=== PATIENT | female | born 1960 | race Caucasian/White ===

== ENCOUNTER → 2024-02-29 | Outpatient (CLI) | payer OTHER ==
[~2024-02-29] MED LIST: AJOVY225 MG/1.5 SQ; AMERGE 2.5MG T2.5 MG PO; ASPIRIN 81M81 MG/TA2 PO; ATROVENT INHALE14 GM IH; CALCIUM CARBON500 M1 PO; CAMBIA50 MG PO; CHOLECALCIFEROL PO; COLACE 100100 MG/CAP PO; COMPAZINE 110 MG/TAB PO; COZAAR 50MG50 MG/TAB PO; CYMBALTA 60MG60 MG PO; DESYREL 50MG50 MG PO; EVOXAC30 MG PO; FLONASEALLERGY NS; MAGIC MOUTH PO; MASON NATURAL2000 IU PO; MIRALAX PA17 GM/Dose PO; MOBIC15 MG PO; NORCO 325 MG-101 TAB PO; PLAQUENIL 200M200 MG PO; PRIL40 PO; PRINIVIL5 MG PO; PROAIR HFA0.09 MG/AC IH; SINGULAIR 110 MG/TAB PO; SYNTHROID0.125 MG/T PO; SYNTHROID0.2 MG/TAB PO; TOPROL XL 50MG50 MG PO; TOPROL XL100 MG PO; TRILIPIX45 MG PO; ULTRAM 50MG TAB50 MG PO; VOLTAREN GEL 1%1 TU TP; ZANAFLEX 4MG TAB4 MG PO; ZETIA 10MG TAB10 MG PO; ZILRETTA32 MG TOP; [UNRECOGNIZED DRUG - CODE] SC
== END ==
LOC: MHCPAIN 15:06
DX: M54.12 Radiculopathy, cervical region (principal); M47.812 Spondylosis without myelopathy or radiculopathy, cervical region; G89.29 Other chronic pain
CPT/HCPCS: G0463

== ENCOUNTER → 2024-03-03 | Outpatient (CLI) | payer OTHER ==
[~2024-03-03] MED LIST changes: +Atropine 1 MG/10 ML SYRINGE IV ONE; +Iohexol 300 - 10 ML VIAL ONE; +Lidocaine PF 2% (20 MG/ML) 2 ML VIAL ONE; +ePHEDrine 50 MG/10 ML VIAL IV ONE
== END ==
LOC: MHCPAIN 12:36
DX: M54.12 Radiculopathy, cervical region (principal)
CPT/HCPCS: J0461; J1100; Q9967

== ENCOUNTER → 2024-08-12 | Outpatient (CLI) | payer OTHER ==
[~2024-08-12] MED LIST changes: -Atropine 1 MG/10 ML SYRINGE IV ONE; -Iohexol 300 - 10 ML VIAL ONE; -Lidocaine PF 2% (20 MG/ML) 2 ML VIAL ONE; -ePHEDrine 50 MG/10 ML VIAL IV ONE
[2024-08-12 13:02] LABS: HEMATOCRIT 43.3 % (37.0-47.0); HEMOGLOBIN 15.1 g/dl (12.5-16.0); MEAN CELL VOLUME 91 fl (80.0-100.0); MEAN CORPUSCULAR HEMOGLOBIN 32 pg (27-31); MEAN CORPUSCULAR HGB CONC 35 g/dl (33.0-37.0); MEAN PLATELET VOLUME 11.1 fl (7.4-10.4); PLATELET COUNT 201 K/mm3 (130-400); RED BLOOD COUNT 4.74 M/mm3 (4.10-5.30)
[2024-08-12 13:13] LABS: ALANINE AMINOTRANSFERASE 30 U/L (0-55); ALKALINE PHOSPHATASE 73 U/L (40-150); ANION GAP 10 mmol/L (7-16); AST,SGOT 25 U/L (5-34); BILIRUBIN,TOTAL 0.4 mg/dL (0.2-1.2); BLOOD UREA NITROGEN 20 mg/dL (10-20); CALCIUM 9.4 mg/dL (8.4-10.2); CHLORIDE 100 mEq/L (98-107); CREATININE, serum 0.83 mg/dL (0.57-1.11); GLUCOSE 87 mg/dL (70-99); MAGNESIUM 1.9 mg/dL (1.6-2.6); POTASSIUM 4.2 mEq/L (3.5-4.5); SODIUM 138 mEq/L (136-145); TOTAL PROTEIN 7.3 g/dl (6.2-8.1)
== END ==
LOC: COL.RAD 11:54
PROVIDERS: Student in an Organized Health Care Education/Training Program
DX: M50.321 Other cervical disc degeneration at C4-C5 level (principal); M40.50 Lordosis, unspecified, site unspecified; M32.9 Systemic lupus erythematosus, unspecified; M54.50 Low back pain, unspecified; Z98.1 Arthrodesis status

== ENCOUNTER → 2024-08-25 | Outpatient (CLI) | payer OTHER ==
[~2024-08-25] MED LIST changes: +Iohexol 300 - 10 ML VIAL ONE; +Lidocaine PF 2% (20 MG/ML) 2 ML VIAL ONE
== END ==
LOC: MHCPAIN 13:39
DX: M54.16 Radiculopathy, lumbar region (principal)
CPT/HCPCS: J1100; Q9967